=== PATIENT | female | born 1970 | race Caucasian/White ===

== ENCOUNTER → 2023-05-24 11:51 | Outpatient (REF) | payer BC, SELFPAY | LOC: RAD 11:51 | PROVIDERS: ATTENDING PHYSICIAN Nurse Practitioner; FAMILY PHYSICIAN Nurse Practitioner Adult Health | DX: K56.609 Unspecified intestinal obstruction, unspecified as to partial versus complete obstruction (principal) | CPT/HCPCS: 74177; Q9967 ==

== ENCOUNTER → 2023-06-17 06:32 | Day surgery (SDC) | payer BC, SELFPAY | LOC: GI 06:32 | PROVIDERS: ATTENDING PHYSICIAN Internal Medicine Gastroenterology; FAMILY PHYSICIAN Family Medicine | DX: K31.7 Polyp of stomach and duodenum (principal); R14.0 Abdominal distension (gaseous); K29.50 Unspecified chronic gastritis without bleeding | CPT/HCPCS: 43239; 88305; 88342 ==